=== PATIENT | female | born 1980 | race Caucasian/White ===

== ENCOUNTER 2019-01-07 06:10 | Emergency (ER) | payer OTHER ==
[~2019-01-07] VITALS: Ht 170.2 cm; Wt 65.8 kg
[2019-01-07] MEDS ORDERED: AMOXICILLIN 50500 MG PO (06:35)
[2019-01-07] MEDS ORDERED: NORCO 5-325 TA1 EACH PO (06:35)
[2019-01-07 06:57] VITALS: BP 130/78
== END 2019-01-07 06:57 | disposition home or self-care (01) ==
LOC: M.ERS 06:10
DX: K04.7 Periapical abscess without sinus (principal); F17.200 Nicotine dependence, unspecified, uncomplicated; Z98.890 Other specified postprocedural states